=== PATIENT | female | born 1985 | race Caucasian/White ===

== ENCOUNTER 2016-08-25 21:25 | Emergency (ER) | payer OTHER ==
[2016-08-25 21:46] VITALS: BP 116/79; PULSE 82; RESP 20; TEMP 98.4; O2SAT 100
--- NOTE | 2016-08-25 21:53 | C.PDOC ---
History Of Present Illness 31 year old female presents to ED complaining of pain to left upper mouth since yesterday. She reports some swelling to area today. Denies fever, bleeding or discharge. Time Seen by Provider: 08/25/16 21:46 Chief Complaint (Nursing): Dental Pain History Per: Patient History/Exam Limitations: no limitations Onset/Duration Of Symptoms: Days (2) Current Symptoms Are (Timing): Still Present Severity: Mild Quality: Positive for: "Pain" Past Medical History Reviewed: Historical Data, Nursing Documentation, Vital Signs Vital Signs: Last Vital Signs Temp 98.4 F 08/25/16 21:42 Pulse 82 08/25/16 21:42 Resp 20 08/25/16 21:42 BP 116/79 08/25/16 21:42 Pulse Ox 100 08/25/16 21:42 - Medical History PMH: No Chronic Diseases Surgical History: No Surg Hx Family History: States: Unknown Family Hx - Social History Hx Alcohol Use: No Hx Substance Use: No Review Of Systems Constitutional: Negative for: Fever, Weakness, Malaise ENT: Positive for: Mouth Pain (toothache). Negative for: Ear Pain, Nose Congestion, Throat Pain Cardiovascular: Negative for: Chest Pain Respiratory: Negative for: Cough Gastrointestinal: Negative for: Nausea Neurological: Negative for: Headache, Dizziness Physical Exam - Physical Exam Appears: Non-toxic, No Acute Distress Skin: Warm, Dry, No Diaphoretic, No Rash Head: Atraumatic, Normacephalic Eye(s): bilateral: Normal Inspection, EOMI Ear(s): Bilateral: Normal Nose: Normal Oral Mucosa: Moist Tongue: Normal Appearing, No Swelling Lips: Normal Appearing, No Swelling Teeth: Normal Dentition (fair), Caries, Tender To Palpation (left upper molar large cavity and tenderness) Gingiva: Swelling (around left upper molar), No Bleeding, No Abscess Throat: Normal, No Erythema, No Exudate Neck: Normal ROM, Supple Cardiovascular: Rhythm Regular, No Murmur Respiratory: Normal Breath Sounds, No Wheezing Extremity: Bilateral: Atraumatic Neurological/Psych: Oriented x3, Normal Speech ED Course And Treatment O2 Sat by Pulse Oximetry: 100 Medical Decision Making Medical Decision Makin y.o female with toothache. Will treat with Ibuprofen and penicillin. Instruct to follow up with dentist in one week Disposition Counseled Patient/Family Regarding: Diagnosis, Need For Followup, Rx Given - Disposition Referrals: [facility] [Outside] Disposition: HOME/ ROUTINE Disposition Time: 21:58 Condition: STABLE Additional Instructions: Take antibiotic twice a day and pain medicine as needed Please follow up with dental clinic within one week for further evaluation Prescriptions: Ibuprofen [Motrin] 600 mg PO Q8 #30 tab Penicillin VK [Pen-Vee K] 1 tab PO BID #20 tab Instructions: Toothache (ED) Forms: [facility] - POA Present On Arrival: None - Clinical Impression Clinical Impression: Dental caries, Gingivitis - PA / [employer] / Resident Statement MD/DO has reviewed & agrees with the documentation as recorded.
== END 2016-08-25 22:16 | disposition home or self-care (01) ==
LOC: C.ER 21:25
DX: K02.9 Dental caries, unspecified (principal); K05.10 Chronic gingivitis, plaque induced

== ENCOUNTER 2017-07-16 20:39 | Emergency (ER) | payer OTHER ==
[2017-07-16 20:39] VITALS: BMI 35.1
--- NOTE | 2017-07-16 21:07 | C.PDOC ---
History Of Present Illness Patient complaints of feeling sad and angry after having an argument with a family member. Denies HI, SI, fever, chills, nausea or vomiting. Time Seen by Provider: 07/16/17 21:06 Chief Complaint (Nursing): Psychiatric Evaluation History Per: Patient History/Exam Limitations: no limitations Onset/Duration Of Symptoms: Hrs Current Symptoms Are (Timing): Still Present Suicide/Self Injury Attempted (Context): None Modifying Factor(s): None Severity: None Associated Symptoms: Anger, Other (Sad). denies: Suicidal Thoughts, Suicidal Plan Involuntary Hold By: None Recent travel outside of the [place]: No Additional History Per: Patient, Family Past Medical History Reviewed: Historical Data, Nursing Documentation, Vital Signs Vital Signs: Last Vital Signs Temp 98.7 F 07/16/17 20:53 Pulse 89 07/16/17 20:53 Resp 20 07/16/17 20:53 BP 122/85 07/16/17 20:53 Pulse Ox 99 07/16/17 23:07 - Medical History PMH: Depression, HTN Surgical History: No Surg Hx Family History: States: Unknown Family Hx - Social History Hx Alcohol Use: No Hx Substance Use: No - Immunization History Hx Tetanus Toxoid Vaccination: No Hx Influenza Vaccination: No Hx Pneumococcal Vaccination: No Review Of Systems Constitutional: Negative for: Fever, Chills Gastrointestinal: Negative for: Nausea, Vomiting, Diarrhea Skin: Negative for: Rash Neurological: Negative for: Weakness, Numbness Psych: Positive for: Other (Sad and angry ). Negative for: Suicidal ideation, Withdrawal Physical Exam - Physical Exam Appears: Non-toxic, No Acute Distress Skin: Warm, Dry Head: Normacephalic Eye(s): bilateral: Normal Inspection Oral Mucosa: Moist Neck: Trachea Midline, Supple Chest: Symmetrical, No Tenderness Cardiovascular: Rhythm Regular Respiratory: No Decreased Breath Sounds, No Rales, No Rhonchi, No Wheezing Gastrointestinal/Abdominal: Soft, No Tenderness Extremity: Normal ROM Extremity: Bilateral: Normal Color And Temperature, Normal ROM Neurological/Psych: Oriented x3 (Awake and alert), Normal Speech (Speaking in full sentences ), Other (no focal deficits ) Gait: Steady ED Course And Treatment O2 Sat by Pulse Oximetry: 99 (RA) Pulse Ox Interpretation: Normal Progress Note: Administered Ativan. Patient seen by a laceworker and set with outpatient appointment. Reevaluation Time: 23:18 Reassessment Condition: Improved Disposition Counseled Patient/Family Regarding: Studies Performed, Diagnosis, Need For Followup - Disposition Referrals: Naya Flanagan MD [Medical Doctor] - Disposition: HOME/ ROUTINE Disposition Time: 21:06 Condition: FAIR Instructions: Generalized Anxiety Disorder, Depression Forms: [facility] (Yoruba) - Clinical Impression Clinical Impression: Depression, Anxiety - Scribe Statement The provider has reviewed the documentation as recorded by the Levibkajal Ott All medical record entries made by the Levibkajal were at my direction and personally dictated by me. I have reviewed the chart and agree that the record accurately reflects my personal performance of the history, physical exam, medical decision making, and the department course for this patient. I have also personally directed, reviewed, and agree with the discharge instructions and disposition.
[2017-07-16 23:58] VITALS: BP 108/74; PULSE 84; RESP 18; TEMP 98; O2SAT 100
== END 2017-07-16 23:58 | disposition home or self-care (01) ==
LOC: C.ER 20:39
DX: F32.9 Major depressive disorder, single episode, unspecified (principal); F41.9 Anxiety disorder, unspecified